=== PATIENT | female | born 1955 | race Caucasian/White ===

== ENCOUNTER 2020-05-07 13:00 | Outpatient (CLI) | payer BC, SELFPAY ==
[2020-05-08 17:37] LABS: COVID-19 RT-PCR UVMMC Result Negative (Negative)
== END 2020-05-07 13:20 ==
PROVIDERS: PCP Family Medicine; Visit Provider Family Medicine
DX: Z11.59 Encounter for screening for other viral diseases (principal)
CPT/HCPCS: U0003

== ENCOUNTER 2020-05-10 01:39 | Outpatient (CLI) | payer BC, SELFPAY ==
--- NOTE | 2020-05-12 09:37 | W.PFT ---
Date of service: 05/10/20 Time of Service: 03:05 Pulmonary Function Test Result Interpretation Spirometry: Shows no evidence of obstructive airways disease, no bronchodilator response Lung Volumes: No evidence of restriction Diffusion Capacity: mildly reduced even when corrected to alveolar volume Airway Pressure: Normal Impression Isolated mild diffusion defect. This could represent early, developing interstitial lung disease versus pulmonary hypertension. Therefore clinical correlation recommended Clinical Correlation therefore is recommended.
== END 2020-05-10 01:59 ==
PROVIDERS: PCP Family Medicine; Visit Provider Family Medicine
DX: R06.09 Other forms of dyspnea (principal); J45.20 Mild intermittent asthma, uncomplicated; I10 Essential (primary) hypertension; R00.2 Palpitations
CPT/HCPCS: 94060; 94726; 94729

== ENCOUNTER 2020-06-08 01:18 | Outpatient (CLI) | payer BC, SELFPAY ==
--- NOTE | 2020-06-08 08:34 | DI.US_ITS ---
APPROVED REPORT EXAM: Comprehensive 2D, Doppler, and color-flow Echocardiogram Patient Location: Out-Patient Cylinder Honer: Alva Alcala RDCS (AE) Indications: SOB on exertion Other Information Study Quality: Good Conclusion Left Ventricle : The left ventricle is normal size. The left ventricular systolic function is normal. The left ventricular ejection fraction is within the normal range. There is normal left ventricular wall thickness. There is normal LV segmental wall motion. LVEF is 55%. The left ventricular diastolic function is normal. Right Ventricle : The right ventricle is normal size. The right ventricular systolic function is norm al. The RVSP is 23 mmHg. Atria : The left atrium size is normal. The right atrium size is normal. Valves: There are no hemodynamically significant valvular lesions Great Vessels : IVC is normal in size and collapses >50% with inspiration. There is no prior study available for comparison. Please see remainder of study for further results. Wall motion Left Ventricle The left ventricle is normal size. The left ventricular systolic function is normal. The left ventric ular ejection fraction is within the normal range. There is normal left ventricular wall thickness. T here is normal LV segmental wall motion. The left ventricular diastolic function is normal. There is no ventricular septal defect visualized. LVEF is 55%. Right Ventricle The right ventricle is normal size. The right ventricular systolic function is normal. The RVSP is 23 mmHg. Atria The left atrium size is normal. The right atrium size is normal. The interatrial septum is intact wit h no evidence for an atrial septal defect. Aortic Valve Aortic valve is trileaflet. There is no aortic valvular stenosis. No aortic regurgitation is present. Mitral Valve Mild mitral annular calcification. No evidence of mitral valve stenosis. Mild mitral regurgitation. Tricuspid Valve The tricuspid valve is normal in structure. There is no tricuspid valve stenosis. Trace tricuspid reg urgitation. Pulmonic Valve The pulmonary valve is normal in structure. There is no pulmonic valvular stenosis. There is no pulmo erik valvular regurgitation. Great Vessels The aortic root is normal in size. The ascending aorta is normal in size. Aortic arch is normal in ca liber. IVC is normal in size and collapses >50% with inspiration. Pericardium There is no pericardial effusion. 2D Dimensions IVSD d PLAX 1.10 cm F: 0.6-1.0 LV Vol A2C d MOD 123.0 mL LVPW d PLAX 1.10 cm F: 0.6 - 1.0 LV Vol A4C d MOD 130.8 mL LVID d PLAX 4.48 cm F: 3.8 - 5.2 LA vol/ BSA A2C s A-L 25.7 mL/m2 LVDs 3.00 cm F: 2.2 - 3.5 LA vol/ BSA A4C s A-L 27.1 mL/m2 Ao Root d 3.23 cm F: 2.7 - 3.3 LA Vol/ BSA Biplane s A-L 27.8 mL/m2 RA Area A4C 10.93 cm2 LA Area A4C s MOD 19.29 cm2 RA Vol/ BSA A4C s A-L 11.7 mL/m2 LA Area A2C s MOD 17.82 cm2 Ao Asc Diam d 3.19 cm F: 2.3 - 3.1 LV EF A4C MOD 55.2 % LV EF Teichholz 61.3 % LV EF A2C MOD 55.0 % LVEF (Lemus's) 55.10 % F: 54 - 74 LV EF Biplane MOD 55.1 % LV Volume 94.14 mL F: 46 - 106 SV 70.34 mL LV Volume Index 44.82 mL/m2 F: 29 - 61 SV Index 33.41 mL/m2 LV Vol Biplane MOD 127.7 mL FS 32.70 % M-Mode TAPSE 1.91 cm (M/F) >1.7 LV Diastology MV E' medial 0.061 (>0.07 m/s) E/A Ratio 0.8 LV E/e MED 12.10 (<14) MV E Vmax 0.74 (0.4-1.3 m/s) MV E' lateral 0.068 (>0.1 m/s) MV A Vmax 0.90 (0.4-1.3 m/s) LV E/e LAT 10.90 (<14) MV E/A Ratio 0.80 MV E/E' medial 12.10 MV E/E' lateral 10.93 Aortic Valve LVOT Area 2.84 cm2 AoV Area Vmax 1.80 cm2 LVOT Vmax 1.04 m/s AoV Area/ BSA (Vmax) 0.86 cm2/m2 LVOT Mean Tacho. 0.64 m/s ASHLEY Mean Tacho. 1.53 cm2 LVOT Peak Grad 4.4 mmHg ASHLEY Mean Tacho. Index 0.73 cm2/m2 LVOT Mean Grad 2.0 mmHg LVOT VTI 0.223 m LVOT Diam s 1.90 cm AoV Vmax 1.65 m/s Velocity Ratio 0.63 AoV Mean Tacho. 1.20 m/s AoV Peak Grad 10.8 mmHg LVOT SV 63.29 mL AoV Mean Grad 6.3 mmHg AoV VTI 0.348 m AoV Area VTI 1.82 cm2 AoV Area/ BSA (VTI) 0.86 cm/m2 Mitral Valve MV DT 236 (160-240 msec) MV PHT 68 msec MV Area PHT 3.21 cm2 Pulmonary Valve PV Vmax 0.96 (0.5-1.5 m/s) RVOT Peak Gr. 2.19 mmHg PV Peak Grad 3.7 mmHg RVOT Mean Gr. 1.25 mmHg PV Mean Grad 2.3 mmHg RVOT VTI 0.181 m PV VTI 0.232 m RVOT Vmax 0.74 m/s Tricuspid Valve TR Peak Grad 20.7 mmHg TR Vmax 2.28 m/s RA Pressure 3.00 mmHg RVSP (TR) 23.8 mmHg
--- NOTE | 2020-06-08 08:45 | DI.CT_ITS ---
EXAM: CT CHEST WO CLINICAL HISTORY: EXERTIONAL DYSPNEA, R06.09,SOB,DIFFUSE BARRIER ON PFT'S. TECHNIQUE: Imaging protocol: Axial computed tomography images were obtained and coronal and sagittal reformatted images were created and reviewed. COMPARISON: No exams were available for comparison FINDINGS: Tracheobronchial tree: Patent where visualized. Mediastinum and Kelly: No dominant adenopathy or fluid collection. Pulmonary parenchyma: There is a 5.1 mm nodule in the right lower lobe. There is a 3.5 mm noncalcifi ed nodule in the right lower lobe medially. There is a 1.4 cm tubular branching density in the left upper lobe laterally. This may represent a vascular malformation. A pulmonary nodule cannot be enti rely excluded. Small parenchymal cysts are seen in the lower lobes. No focal consolidating infiltra giovanna are seen. Pleura: No effusion or pneumothorax. Heart: The heart is not dilated. Mild coronary artery calcification is present. No pericardial effus ion. Aorta: Thoracic aorta non-dilated. Minimal atherosclerosis. Upper abdomen: Unremarkable. Lymph nodes: Within normal limits. Bones:Degenerative changes are present. Soft tissues: Unremarkable. IMPRESSION: 1. Two noncalcified pulmonary nodules in the right lower lobe. The largest measuring 5.1 mm. If the re is a significant clinical history (smoking or other risk factors), a repeat CT scan in 12 months i s recommended. 2. Tubular branching density in the left upper lobe laterally. Differential considerations include a vascular malformation or pulmonary mass. A follow-up CT scan of the chest with contrast may be cons idered for further evaluation. RADIATION DOSE DELIVERED: Total DLP Total DLP DATA REPOSITORY: All CT scans at this facility are submitted to the National Radiology Data Registry (NRDR) Dose Index Registry (DIR) with the [employer] ([employer]). RADIATION OPTIMIZATION: All CT scans at this facility use at least one of these dose optimization te chniques: automated exposure control; mA and/or kV adjustment per patient size (includes targeted exa ms where dose is matched to clinical indication); or iterative reconstruction.
== END 2020-06-08 01:38 ==
PROVIDERS: PCP Family Medicine; Visit Provider Family Medicine
DX: R06.02 Shortness of breath (principal)
CPT/HCPCS: 71250; 93306

== ENCOUNTER → 2024-02-15 01:04 | Outpatient (CLI) | payer MEDICARE, SELFPAY ==
--- NOTE | 2024-02-15 | DI.CT_ITS ---
Exam(s) CT CHEST WO EXAM: CT CHEST WO CLINICAL HISTORY: R91.[address] scan, please recheck lung nodules. TECHNIQUE: Imaging protocol: Axial computed tomography images were obtained and coronal and sagittal reformatted images were created and reviewed. CONTRAST MATERIAL: Noncontrast COMPARISON: CT CT CHEST WO from 04/29/2021 FINDINGS: Pulmonary parenchyma: No consolidation. No change in size or appearance of previously noted nodule in the posterior left upper lobe, measuring 12 x 5 by 7 millimeters. Stable 5 millimeter nodule right lower lobe. No new nodules. Emphysema: None. Tracheobronchial tree: No mucous plugging. No bronchiectasis . Interstitial changes: None. Pleura: No effusion or pneumothorax. Heart: The heart is mildly dilated. The coronary arteries show mildcalcifications. Aorta: Thoracic aorta non-dilated. Minimalatherosclerotic changes. Lymph nodes: No enlarged lymph nodes. Bones: Minimal degenerative changes are seen. No evidence of compression fracture. Upper abdomen: Unremarkable. Soft tissues: Unremarkable. IMPRESSION: Stable pulmonary nodules. No acute abnormality. RADIATION DOSE DELIVERED: Total DLP Total DLP DATA REPOSITORY: All CT scans at this facility are submitted to the National Radiology Data Registry (NRDR) Dose Index Registry (DIR) with the [employer] ([employer]). RADIATION OPTIMIZATION: All CT scans at this facility use at least one of these dose optimization te chniques: automated exposure control; mA and/or kV adjustment per patient size (includes targeted exa ms where dose is matched to clinical indication); or iterative reconstruction.
== END ==
PROVIDERS: PCP Family Medicine; Visit Provider Family Medicine
DX: R91.8 Other nonspecific abnormal finding of lung field (principal)
CPT/HCPCS: 71250